=== PATIENT | male | born 1965 | race Caucasian/White ===

== ENCOUNTER → 2019-11-01 | Outpatient (CLI) | payer OTHER ==
--- NOTE | 2019-11-02 09:47 | REP ---
Clinical: Left lower extremity pain . Technique: Echeverria scale and color Doppler evaluation using linear high frequency transducer. Findings: Ultrasound examination of the left lower extremity deep venous structures from the common femoral vein to the popliteal vein demonstrates normal compressibility flow and wave patterns in response to respiration and augmentation. There is no evidence for deep venous thrombosis. Impression: No evidence for deep venous thrombosis. Electronically Signed by Fidencio Marroquin MD 11/01/2019 12:43 P
== END ==
LOC: M RAD 12:13
PROVIDERS: ATTEND Physician Assistant Medical
DX: M79.662 Pain in left lower leg (principal)

== ENCOUNTER → 2021-04-25 | Outpatient (CLI) | payer OTHER ==
--- NOTE | 2021-04-25 11:47 | REPVR ---
PROCEDURE INFORMATION: Exam: CT Maxillofacial Without Contrast, Sinus Exam date and time: 04/25/2021 11:17 AM Age: 55 years old Clinical indication: Other: Chronic rhinitis TECHNIQUE: Imaging protocol: CT Maxillofacial without contrast. Focus on the sinuses. Radiation optimization: All CT scans at this facility use at least one of these dose optimization techniques: automated exposure control; mA and/or kV adjustment per patient size (includes targeted exams where dose is matched to clinical indication); or iterative reconstruction. COMPARISON: No relevant prior studies available. FINDINGS: Frontal sinuses: There is mild mucosal thickening along the floors of the frontal sinuses. Ethmoid air cells: There is moderate ethmoid mucosal thickening. Sphenoid sinuses: There is mild sphenoid sinus mucosal thickening. Maxillary sinuses: There is mild maxillary sinus mucosal thickening. The right maxillary sinus infundibulum is obscured by focal mucosal thickening. Nasal cavity/Septum: There are louisa bullosa of the middle turbinates. There is leftward nasal septal deviation with a spur. Orbital cavity: Orbits are normal. Globes are unremarkable. Bones/joints: Unremarkable. Soft tissues: Unremarkable. IMPRESSION: Sinus mucosal disease as described. Electronically signed by: Carey Hodge On 04/25/2021 11:47:20 AM
== END ==
LOC: M RAD 11:01
PROVIDERS: ATTEND Specialist
DX: J31.0 Chronic rhinitis (principal); J34.2 Deviated nasal septum

== ENCOUNTER → 2021-05-17 | Outpatient (CLI) | payer OTHER ==
[~2021-05-17] MED LIST: DOXY-350 PO; FLUTISP; PERCOCET PO
== END ==
LOC: M LABSMTC 10:53
PROVIDERS: ATTEND Anesthesiology
DX: Z01.812 Encounter for preprocedural laboratory examination (principal); Z11.52 Encounter for screening for COVID-19

== ENCOUNTER → 2021-05-17 | Outpatient (CLI) | payer OTHER ==
--- NOTE | 2021-05-18 15:48 | ECGEPIP ---
[facility] Test Date: 2021-05-17 Pat Name: TYSON MCCRAY Department: Room: - Gender: Male Chef: ERNESTINA : 1965 Requested By: Rainer Drake Order Number: [id number] Reading MD: Johnathan Vivar Measurements Intervals [place] Rate: 47 P: 54 PA: 174 QRS: 41 QRSD: 86 T: 29 QT: 448 QTc: 396 Interpretive Statements Sinus bradycardia Comparison tracing not on file Electronically Signed on 05-18-2021 15:48:30 EDT by Johnathan Vivar
== END ==
LOC: M EKG 09:40
PROVIDERS: ATTEND Anesthesiology
DX: Z01.818 Encounter for other preprocedural examination (principal); M19.90 Unspecified osteoarthritis, unspecified site; Z11.52 Encounter for screening for COVID-19
CPT/HCPCS: 93005; U0003

== ENCOUNTER 2021-05-22 06:50 | Day surgery (SDC) | payer OTHER ==
[~2021-05-22] VITALS: Ht 177.8 cm; Wt 92.3 kg
[~2021-05-22 06:50] MED LIST changes: -DOXY-350 PO; +LR 1,000 ML IV ONE; -PERCOCET PO
[2021-05-22] MEDS ORDERED: OXYMETAZOLINE 0.05% NASAL SPRAY (AFRIN) As Ordered ONE (08:17)
[2021-05-22] MEDS ORDERED: LIDOCAINE W/EPINEPHRINE 1% 20ML VIAL As Ordered ONE ×2 (08:17→09:47)
[2021-05-22] MEDS ORDERED: METHYLENE BLUE 0.5% (5MG/ML) 10 ML AMP (PROVAYBLUE) As Ordered ONE (08:17)
[2021-05-22] MEDS ORDERED: EPINEPHrine 1MG/ML INJ 30ML MD-VIAL As Ordered ONE (08:17)
[2021-05-22] MEDS ORDERED: LIDOCAINE 2% 100MG/5ML SDV (FOR ANES.) As Ordered ONE (08:30)
[2021-05-22] MEDS ORDERED: propofoL 200 MG/20 ML VIAL As Ordered ONE ×2 (08:30→10:15)
[2021-05-22] MEDS ORDERED: dexameTHASONE 4 MG/ML 1ML VIAL (J1100 PER 1MG) As Ordered ONE (08:31)
[2021-05-22] MEDS ORDERED: fentaNYL 100 MCG/2 ML INJECTION (J3010) As Ordered ONE ×2 (08:31→09:18)
[2021-05-22] MEDS ORDERED: MIDAZOLAM INJ 2MG/2ML VIAL (J2250 PER 1MG) As Ordered ONE (08:31)
[2021-05-22] MEDS ORDERED: ONDANSETRON 4MG/2ML VIAL As Ordered ONE (08:31)
[2021-05-22] MEDS ORDERED: ROCURONIUM BROMIDE 50 MG/5 ML VIAL As Ordered ONE (08:35)
[2021-05-22] MEDS ORDERED: IBUPROFEN 800 MG TAB PO SCH (09:00)
[2021-05-22] MEDS ORDERED: PERCOCET PO (09:16)
[2021-05-22] MEDS ORDERED: DOXY-350 PO (09:16)
[2021-05-22] MEDS ORDERED: ePHEDrine SULFATE 25 MG/5 ML(5MG/ML) SYRINGE As Ordered ONE (09:46)
[2021-05-22] MEDS ORDERED: SUGAMMADEX SODIUM 500 MG/5 ML VIAL (BRIDION) As Ordered ONE (10:05)
[2021-05-22] MEDS ORDERED: ACETAMINOPHEN 1000MG 100ML IV BTL (OFIRMEV) (J0131 PER 10MG) As Ordered ONE (10:38)
[2021-05-22] MEDS ORDERED: ONDANSETRON 4MG/2ML VIAL IV PRN (10:45)
[2021-05-22] MEDS ORDERED: LR 1,000 ML IV SCH (10:45)
[2021-05-22] MEDS ORDERED: fentaNYL 100 MCG/2 ML INJECTION (J3010) IV PRN (10:45)
[2021-05-22] MEDS ORDERED: HYDROMORPHONE HCL 0.5 MG/ 0.5 ML SYRINGE (J1170 PER 1) IV PRN (10:45)
[2021-05-22] MEDS ORDERED: oxyCODONE 5MG TAB PO PRN (10:45)
[2021-05-22] MEDS ORDERED: PERCOCET 5MG/325MG TAB PO PRN (10:50)
[2021-05-22 11:46] VITALS: BP 132/80
--- NOTE | 2021-05-23 16:14 | RO ---
OPERATIVE NOTE DATE OF OPERATION: 05/22/2021 PREOPERATIVE DIAGNOSIS: Chronic sinusitis with nasal septal deviation. POSTOPERATIVE DIAGNOSIS: Chronic sinusitis with nasal septal deviation. PROCEDURE: Septoplasty, bilateral endoscopic ethmoidectomy, and maxillary antrostomy. SURGEON: Kenji Garcia M.D. [employer] MANAGER: None. ANESTHESIA: INDICATIONS FOR PROCEDURE: This is a 55-year-old who for over 10 years has had progressive nasal congestion and recurrent sinus infections. CT scan demonstrated bimaxillary and ethmoid sinusitis. DESCRIPTION OF PROCEDURE: Satisfactory general endotracheal anesthesia was administered. Pharyngeal pack placed and the nose prepared for surgery by placing cotton-soaked pledgets with Afrin solution to the nasal cavity bilaterally. 1% Xylocaine with 1:100,000 epinephrine was used to inject into the nasal septum and inferior turbinates. A [place] incision was made on the left side of the nose. A mucoperichondrial flap and envelope was created on the left side of the nasal septum and carried down to the junction of the bony and cartilaginous septum. This was then with an elevator, and an envelope was then created on the right side of the septum. Ruthy scissors were used to make a cut high in the perpendicular plate in the midportion of the vomer, and a central segment of the bony septum was resected. Next, with the round knife on the Hari elevator, a strip of cartilage was resected from the floor of the nose, mobilizing the quadrilateral cartilage and creating a swinging door. Then, a central segment of the cartilaginous septum was resected, preserving a 1 cm dorsal and caudal strut. Double-action rongeur was used to take down deflected portions of the perpendicular plate, as well. Finally, the maxillary crest spur was taken down after elevating mucoperiostium off both sides of it with a chisel. A segment of the resected cartilage was morselized and placed back into the septal envelop. The incision was closed using an interrupted #5-0 chromic suture. Then, a #4-0 plain suture was placed in a [id number] fashion through the two leaves of mucoperichondrium to appose them. Next, turbinate surgery done. He had markedly hypertrophic turbinates. They were medially infractured and using the turbinate Coblator probe, two parallel passes of the probe were made with 10 second coblation times for each of the set points of the probe. Finally, suction cautery used to coagulate the posterior inferior tip of the inferior turbinate. A #15 blade was used to make an incision on the anterior tip of the inferior turbinate. Neil splints were placed in the nose and sewn to the columellar with #2-0 Prolene suture. At completion of the septum surgery, endoscopic surgery was started with a 0 degree telescope and a microdebrider as the primary dissecting instrument. 1% Xylocaine with 1:100,000 epinephrine was injected into the lateral nasal wall and middle turbinate. He had a partially pneumatized middle turbinate on both sides. Using the microdebrider, the lateral lamella of the middle turbinate was removed allowing great access to the middle meatus. The uncinate process was taken down. The ethmoid bulla was then resected. Polypoid tissue was noted in the dissection in the region of the posterior ethmoids. The ground lamella was then perforated and the lamella bone was resected following the skull base, lamina papyracea as landmarks removing hyperplastic mucosa, some small polyps, and lamella of bone. Superiorly the nasal frontal recess was approached by removing the ____ of the uncinate process superiorly over to the superior ethmoid cell. Finally the natural maxillary sinus ostia was identified, it was then cannulated, and enlarged using a combination of side-biting forceps. Identical procedure was performed on the right side. Again, the middle turbinates were preserved in their entirety. As the dissection was completed, the adrenaline pledgets were placed in each side for hemostasis at first and these were removed with no significant bleeding. After that nasal ports were placed in the middle meatus for security. The throat pack was removed and throat suctioned. The patient was awakened, extubated, and sent to recovery in satisfactory condition. He will be discharged on Tylox for pain and doxycycline 100 mg b.i.d. He will be seen in the office in three days.
== END 2021-05-22 12:10 | disposition home or self-care (01) ==
LOC: M SDC 06:50
PROVIDERS: ATTEND Specialist
DX: J32.9 Chronic sinusitis, unspecified (principal); J34.2 Deviated nasal septum; M19.90 Unspecified osteoarthritis, unspecified site; M54.9 Dorsalgia, unspecified; R06.83 Snoring
CPT/HCPCS: 30130; 30520; 31267; 88300; 88305; 88312; J0131; J1100; J2250; J2405; J3010; Q9968

== ENCOUNTER → 2022-10-16 | Outpatient (CLI) | payer OTHER ==
[~2022-10-16] MED LIST changes: +DOXY-444 PO; -LR 1,000 ML IV ONE; +PERCOCET PO
== END ==
LOC: M RAD 11:20
PROVIDERS: ATTEND Physician Assistant Medical
DX: R10.9 Unspecified abdominal pain (principal)

== ENCOUNTER 2023-10-29 13:56 | Emergency (ER) | payer OTHER ==
[~2023-10-29] VITALS: Ht 177.8 cm; Wt 96.2 kg
[2023-10-29 13:57] VITALS: TEMP 97.1
[2023-10-29 15:16] LABS: BASO % 0.6 % (0.0-1.0); EOS # 0.3 10^3/uL (0.0-0.5); EOS % 4.5 % (0.0-3.0); HEMATOCRIT 43.1 % (42.0-52.0); HEMOGLOBIN 14.6 g/dl (13.5-17.5); LYMPH # 3.2 10^3/uL (1.5-5.0); LYMPH % 45.4 % (24.0-44.0); MEAN CORPUSCULAR HEMOGLOBIN 30.2 pg (27.0-33.0); MEAN CORPUSCULAR HGB CONC 33.9 g/dl (32.0-36.5); MEAN CORPUSCULAR VOLUME 89.2 fl (80.0-96.0); MONO # 0.6 10^3/uL (0.0-0.8); MONO % 8.2 % (2.0-8.0); NEUTROPHILS # 2.9 10^3/uL (1.5-8.5); PLATELET COUNT, AUTOMATED 237 10^3/uL (150-450); RED BLOOD COUNT 4.83 10^6/uL (4.30-6.10); WHITE BLOOD COUNT 7.1 10^3/uL (4.0-10.0)
[2023-10-29] MEDS ORDERED: ASPIRIN 81MG CHEW TABLET PO ONE (15:20)
[2023-10-29 15:29] LABS: INR 0.97; PROTHROMBIN TIME 12.6 SECONDS (12.5-14.5)
[2023-10-29 15:32] LABS: D-DIMER QUANT < 0.27 ug/mL (<0.5)
[2023-10-29 15:34] LABS: CK-MB VALUE MASS < 1.0 NG/ML (<3.6); LIPASE 31 U/L (12-53)
[2023-10-29 15:36] LABS: ALBUMIN 4.1 G/DL (3.2-5.2); ALKALINE PHOSPHATASE 63 U/L (46-116); ALT/SGPT 44 U/L (7.0-40); AST/SGOT 14 U/L (<34); BILIRUBIN,DIRECT 0.1 MG/DL (<0.4); BILIRUBIN,TOTAL 0.4 MG/DL (0.3-1.2); BLOOD UREA NITROGEN 17 MG/DL (9-23); CALCIUM LEVEL 9.4 MG/DL (8.5-10.1); CARBON DIOXIDE LEVEL 30 MMOL/L (20-31); CHLORIDE LEVEL 107 MMOL/L (98-107); CPK CREATINE PHOSPHOKINASE 135 U/L (46-171); CREATININE FOR GFR 1.01 MG/DL (0.70-1.30); GLOMERULAR FILTRATION RATE > 60.0 (>56); GLUCOSE, FASTING 86 MG/DL (60-100); MB/CK RELATIVE INDEX 0.74 (< OR =4); POTASSIUM SERUM 4.3 MMOL/L (3.5-5.1); SODIUM LEVEL 142 MMOL/L (136-145); TOTAL PROTEIN 6.5 G/DL (5.7-8.2)
[2023-10-29 15:44] LABS: RSV AMPLIFICATION NEGATIVE (NEGATIVE)
[2023-10-29 16:11] VITALS: O2SAT 99
[2023-10-29 16:30] VITALS: BP 137/80
[2023-10-29 16:39] LABS: CK-MB VALUE MASS < 1.0 NG/ML (<3.6)
[2023-10-29 16:40] LABS: CPK CREATINE PHOSPHOKINASE 132 U/L (46-171); MB/CK RELATIVE INDEX 0.75 (< OR =4)
[2023-10-29] MEDS ORDERED: ASPI81TA26 PO (16:56)
[2023-10-29] MEDS ORDERED: PROTPAK PO (16:56)
== END 2023-10-29 17:25 | disposition home or self-care (01) ==
LOC: M ED 13:56
DX: R07.9 Chest pain, unspecified (principal); I10 Essential (primary) hypertension

== ENCOUNTER → 2025-09-22 | Outpatient (CLI) | payer OTHER ==
[~2025-09-22] MED LIST changes: +ASPI81TA26 PO; +DOXY-440 PO; -DOXY-444 PO; +METO1TAB32 PO; +PROTPAK PO; +ROSU40TA81 PO
[2025-09-22 17:37] LABS: BASO # 0.0 10^3/uL (0.0-0.2); BASO % 0.5 % (0.0-1.0); EOS # 0.3 10^3/uL (0.0-0.5); EOS % 3.7 % (0.0-3.0); LYMPH # 3.1 10^3/uL (1.5-5.0); LYMPH % 41.8 % (24.0-44.0); MONO # 0.6 10^3/uL (0.0-0.8); MONO % 8.3 % (2.0-8.0); NEUTROPHILS # 3.3 10^3/uL (1.5-8.5); NEUTROPHILS % 45.4 % (36.0-66.0); PLATELET COUNT, AUTOMATED 234 10^3/uL (150-450)
[2025-09-22 18:05] LABS: ALT/SGPT 37 U/L (7.0-40); AST/SGOT 17 U/L (<34); CALCIUM LEVEL 9.0 MG/DL (8.3-10.6); CARBON DIOXIDE LEVEL 30 MMOL/L (20-31); CHLORIDE LEVEL 103 MMOL/L (98-107); CREATININE FOR GFR 1.14 MG/DL (0.70-1.30); GLOMERULAR FILTRATION RATE 73.6 (>49); POTASSIUM SERUM 4.0 MMOL/L (3.5-5.1); RHEUMATOID FACTOR QUANT 4.9 IU/ML (<14); SODIUM LEVEL 141 MMOL/L (136-145)
[2025-09-22 18:07] LABS: THYROID PEROXIDASE ANTIBODY < 28.0 U/ML (<60.0); THYROXINE (T4) 9.9 UG/DL (4.5-10.9); TOTAL T3 143.5 NG/DL (60.0-181.0)
[2025-09-27 09:53] LABS: THRYOGLOBULIN ANTIBODIES (ATA) < 1 IU/mL (< or = 1); THYROGLOBULIN QUANTITATIVE 14.2 ng/mL (2.8-40.9)
== END ==
LOC: M LAB 16:07
PROVIDERS: ATTEND Allergy & Immunology Allergy
DX: L50.1 Idiopathic urticaria (principal); Z79.899 Other long term (current) drug therapy